=== PATIENT | female | born 1995 ===

== ENCOUNTER 2017-06-22 18:24 | Emergency (ER) | payer SELFPAY ==
[2017-06-22 19:58] VITALS: BP 124/88; PULSE 88; RESP 16; O2SAT 98
--- NOTE | 2017-06-22 20:35 | C.PDOC ---
History Of Present Illness 22 year old female presents to the ER with a complaint of palpitations and feeling shaky after taking 1 tablet of a "quickfit" pill. Denies abdominal pain , SOB, or vomiting. Patient currently feels better, reports she is asymptomatic at this time. Time Seen by Provider: 06/22/17 19:46 Chief Complaint (Nursing): Palpitations History Per: Patient History/Exam Limitations: no limitations Onset/Duration Of Symptoms: Hrs Current Symptoms Are (Timing): Gone Recent travel outside of the [place]: No Past Medical History Reviewed: Historical Data, Nursing Documentation, Vital Signs Vital Signs: Last Vital Signs Temp Pulse 88 06/22/17 19:57 Resp 16 06/22/17 19:57 BP 124/88 06/22/17 19:57 Pulse Ox 98 06/22/17 21:13 Family History: States: Unknown Family Hx - Social History Hx Alcohol Use: No Hx Substance Use: No - Immunization History Hx Tetanus Toxoid Vaccination: No Hx Influenza Vaccination: No Hx Pneumococcal Vaccination: No Review Of Systems Cardiovascular: Positive for: Palpitations. Negative for: Chest Pain Respiratory: Negative for: Shortness of Breath Gastrointestinal: Negative for: Vomiting, Abdominal Pain, Diarrhea Physical Exam - Physical Exam Appears: Non-toxic, No Acute Distress Skin: Normal Color, Warm, Dry Head: Atraumatic, Normacephalic Eye(s): bilateral: Normal Inspection, PERRL, EOMI Oral Mucosa: Moist Chest: Symmetrical, No Tenderness Cardiovascular: Rhythm Regular Respiratory: Normal Breath Sounds, No Rales, No Rhonchi, No Wheezing Gastrointestinal/Abdominal: Soft, No Tenderness Neurological/Psych: Oriented x3, Normal Speech ED Course And Treatment ECG: Interpreted By Me, Viewed By Me ECG Rhythm: Sinus Rhythm ECG Interpretation: Normal Interpretation Of ECG: No acute ST/T wave changes Rate From EC O2 Sat by Pulse Oximetry: 98 (Room air) Pulse Ox Interpretation: Normal Progress Note: Pt in no resp distress,and asymptomatic at this point. Poison control center contacted and advised symptomatic care only. Pt will be d/c with PMD follow up and advised to d/c the diet pills and educated in healthy eating habits and exercise. Return precautions discussed Reassessment Condition: Improved Disposition - Disposition Referrals: [facility] [Outside] Disposition: HOME/ ROUTINE Disposition Time: 20:33 Condition: STABLE Additional Instructions: STOP the PILLS ( NO NIEVES) Please follow up in clinic Increase fluids Return to ER if difficulty breathing, chest pain,vomiting or worse Forms: General Discharge Instructions - Clinical Impression Clinical Impression: Use of herbal medication, Anxiety, mild - PA / RN QUALITY / Resident Statement MD/DO has reviewed & agrees with the documentation as recorded. - Scribe Statement The provider has reviewed the documentation as recorded by the Scribe Pelon Enrique All medical record entries made by the Nainibvicky were at my direction and personally dictated by me. I have reviewed the chart and agree that the record accurately reflects my personal performance of the history, physical exam, medical decision making, and the department course for this patient. I have also personally directed, reviewed, and agree with the discharge instructions and disposition.
--- NOTE | 2017-06-23 13:53 | CARD ---
APPROVED REPORT EKG Measurement Heart [id number] <Conclusion> Normal sinus rhythm with sinus arrhythmia Normal ECG
== END 2017-06-22 20:42 | disposition home or self-care (01) ==
LOC: C.ER 18:24
DX: F41.9 Anxiety disorder, unspecified (principal)

== ENCOUNTER 2017-07-01 14:51 | Emergency (ER) | payer SELFPAY ==
[2017-07-01 15:30] VITALS: BMI 25.0
[2017-07-01 15:37] VITALS: BP 115/83; PULSE 78; RESP 16; TEMP 98.3; O2SAT 100
[2017-07-01] MEDS ORDERED: Sodium Chloride 0.9% 1,000 ML IV ONE (16:43)
== END 2017-07-01 15:32 | disposition left against medical advice (07) ==
LOC: C.ER 14:51
DX: Z02.89 Encounter for other administrative examinations (principal); R42 Dizziness and giddiness

== ENCOUNTER 2017-08-30 17:21 | Emergency (ER) | payer SELFPAY ==
[2017-08-30 18:42] VITALS: BMI 25.7
[2017-08-30 18:46] VITALS: TEMP 98.3
--- NOTE | 2017-08-30 19:35 | C.PDOC ---
History Of Present Illness 22 y/o female presents to ED with complaints of rash to face intermittently for 1 month. Patient states she came from [place] 1 month ago and started developing rash when she goes outside in the cold and it resolves on its own when she goes back inside. Also notes nausea and lightheaded intermittently. Denies any exacerbating signs or symptoms. Patient reports headache, dizziness, visual changes, abdominal pain, neck pain, vaginal bleeding /discharge, vomiting, change in sensation or any other complaints at this time. Patient currently on menses. States she has not been evaluated for these symptoms previously. 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 History/Exam Limitations: no limitations Onset/Duration Of Symptoms: Days Current Symptoms Are (Timing): Still Present Past Medical History Reviewed: Historical Data, Nursing Documentation, Vital Signs Vital Signs: Last Vital Signs Temp 98.3 F 08/30/17 18:43 Pulse 74 08/30/17 21:49 Resp 20 08/30/17 21:49 BP 110/64 08/30/17 21:49 Pulse Ox 98 08/30/17 21:49 - Medical History PMH: No Chronic Diseases Surgical History: No Surg Hx Family History: States: No Known Family Hx - Social History Hx Alcohol Use: No Hx Substance Use: No - Immunization History Hx Tetanus Toxoid Vaccination: No Hx Influenza Vaccination: No Hx Pneumococcal Vaccination: No Review Of Systems Constitutional: Negative for: Fever, Chills Cardiovascular: Negative for: Chest Pain Respiratory: Negative for: Cough, Shortness of Breath Gastrointestinal: Positive for: Nausea. Negative for: Vomiting, Abdominal Pain Skin: Positive for: Rash Physical Exam - Physical Exam Appears: Non-toxic, No Acute Distress Skin: Warm, Dry, Rash ((+) mild skin colored inflammation and scaling periorbitally) Head: Atraumatic, Normacephalic Eye(s): bilateral: Normal Inspection, PERRL, EOMI Ear(s): Bilateral: Normal Nose: Normal Oral Mucosa: Moist Throat: Normal, No Erythema, No Exudate Neck: Normal ROM, Supple Chest: Symmetrical Cardiovascular: Rhythm Regular Respiratory: Normal Breath Sounds, No Accessory Muscle Use, No Rales, No Rhonchi , No Wheezing Gastrointestinal/Abdominal: Soft, No Tenderness, No Guarding, No Rebound Extremity: Normal ROM Neurological/Psych: Oriented x3, Normal Speech, Normal Cognition ED Course And Treatment - Laboratory Results Result Diagrams: 08/30/17 20:05 08/30/17 20:05 O2 Sat by Pulse Oximetry: 100 (RA) Pulse Ox Interpretation: Normal Progress Note: Discussed with pt limitations of work up and instructed to follow up with PM Din 1-2 days for further evaluation. Instructed to return to ER if symptoms persist or worsen. transplant nurse used to ensure understanding. Disposition - Disposition Referrals: [facility] [Outside] Disposition: HOME/ ROUTINE Disposition Time: 21:04 Condition: STABLE Additional Instructions: Keyona un seguimiento con el pediatra en 1-2 lee. Regrese a la freddie de emergencias si los sntomas persisten o empeoran. Prescriptions: Glycerin/Lanolin/Mineral Oil [Eucerin Intensive Repair Crm] 1 appl TP BID 5 Days cream..g. Instructions: Dermatitis Forms: [employer] (Polish) Print Language: INDIAN - Clinical Impression Clinical Impression: Facial rash, Nausea - PA / VISITOR SERVICES ASSOCIATE / Resident Statement MD/DO has reviewed & agrees with the documentation as recorded. - Scribe Statement The provider has reviewed the documentation as recorded by the Nainibvicky Staples All medical record entries made by the Scribe were at my direction and personally dictated by me. I have reviewed the chart and agree that the record accurately reflects my personal performance of the history, physical exam, medical decision making, and the department course for this patient. I have also personally directed, reviewed, and agree with the discharge instructions and disposition.
[2017-08-30 20:15] LABS: BASO % 0.5 % (0.0-2.0); EOS # 0.1 K/uL (0.0-0.7); EOS % 2.1 % (0.0-4.0); HEMOGLOBIN 13.8 g/dL (11.0-16.0); LYMPH # 1.6 K/uL (1.0-4.3); LYMPH % 34.9 % (20.0-40.0); MEAN CELL VOLUME 88.4 fL (81.0-99.0); MEAN CORPUSCULAR HEMOGLOBIN 29.2 pg (27.0-31.0); MEAN PLATELET VOLUME 8.6 fL (7.2-11.7); MONO # 0.7 K/uL (0.0-0.8); MONO % 15.6 % (0.0-10.0); NEUT # 2.2 K/uL (1.8-7.0); NEUT % 46.9 % (50.0-75.0); NRBC % 0.1 % (0.0-2.0); RBC 4.72 Mil/uL (3.80-5.20); RED CELL DISTRIBUTION WIDTH 14.8 % (11.5-14.5); WHITE BLOOD COUNT 4.6 K/uL (4.8-10.8)
[2017-08-30 20:21] LABS: SQUAMOUS EPITHIAL 6 /hpf (0-5); URINE BACTERIA RARE (<OCC); URINE BILIRUBIN NEGATIVE (NEGATIVE); URINE BLOOD NEGATIVE (NEGATIVE); URINE CLARITY Hazy (Clear); URINE COLOR Yellow (YELLOW); URINE GLUCOSE (UA) NORMAL (Normal); URINE LEUKOCYTE ESTERASE TRACE Leu/uL (Negative); URINE PROTEIN NEGATIVE (NEGATIVE); URINE UROBILINOGEN NORMAL mg/dL (0.2-1.0)
[2017-08-30 20:22] LABS: HCG,QUALITATIVE URINE NEGATIVE (NEGATIVE)
[2017-08-30 20:24] LABS: ALB/GLOB RATIO 1.1 (1.0-2.1); ALBUMIN 4.5 g/dL (3.5-5.0); ALT/SGPT 39 U/L (9-52); AST/SGOT 29 U/L (14-36); BLOOD UREA NITROGEN 9 mg/dL (7-17); CALCIUM 9.5 mg/dl (8.6-10.4); GFR AFRICAN-AMERICAN > 60; GFR NON-AFRICAN AMERICAN > 60
[2017-08-30 21:50] VITALS: BP 110/64; PULSE 74; RESP 20
--- NOTE | 2017-08-31 11:59 | CARD ---
APPROVED REPORT EKG Measurement Heart [id number] <Conclusion> Normal sinus rhythm with sinus arrhythmia Normal ECG
[2017-09-04 16:11] VITALS: O2SAT 100
== END 2017-08-30 21:49 | disposition home or self-care (01) ==
LOC: C.ER 17:21
DX: R21 Rash and other nonspecific skin eruption (principal); R11.0 Nausea

== ENCOUNTER 2018-02-10 13:36 | Emergency (ER) | payer OTHER ==
[2018-02-10 13:36] VITALS: BMI 25.6
--- NOTE | 2018-02-10 14:20 | C.PDOC ---
History Of Present Illness 22 year old female presents to the ED complaining of vaginal bleeding for 2 weeks. She also complains of suprapubic tenderness. She denies any n/v/d, fever, chills, or any other symptoms. Time Seen by Provider: 02/10/18 13:47 Chief Complaint (Nursing): Female Genitourinary History Per: Patient History/Exam Limitations: no limitations Onset/Duration Of Symptoms: Days (2 weeks ) Current Symptoms Are (Timing): Still Present Associated Symptoms: denies: Fever, Chills, Nausea, Vomiting, Diarrhea Past Medical History Reviewed: Historical Data, Nursing Documentation, Vital Signs Vital Signs: Last Vital Signs Temp 98.7 F 02/10/18 13:44 Pulse 70 02/10/18 13:44 Resp 20 02/10/18 13:44 BP 114/76 02/10/18 13:44 Pulse Ox 100 02/10/18 13:44 - Medical History Other PMH: Respiratory diseases, bleeding disorder Surgical History: No Surg Hx Family History: States: No Known Family Hx - Social History Hx Alcohol Use: No Hx Substance Use: No - Immunization History Hx Tetanus Toxoid Vaccination: No Hx Influenza Vaccination: No Hx Pneumococcal Vaccination: No Review Of Systems Constitutional: Negative for: Fever, Chills Gastrointestinal: Positive for: Abdominal Pain (suprapubic cramping). Negative for: Nausea, Vomiting, Diarrhea Genitourinary: Positive for: Vaginal Bleeding. Negative for: Dysuria, Hematuria Physical Exam - Physical Exam Appears: Non-toxic Skin: Warm, Dry Head: Normacephalic Eye(s): bilateral: Normal Inspection Nose: Normal Oral Mucosa: Moist Neck: Normal ROM Chest: Symmetrical Cardiovascular: Rhythm Regular Respiratory: Normal Breath Sounds, No Rales, No Rhonchi, No Wheezing Gastrointestinal/Abdominal: Tenderness (Suprapubic tenderness ), No Distention, No Guarding, No Rebound Extremity: Normal ROM Neurological/Psych: Oriented x3, Normal Speech Gait: Steady ED Course And Treatment - Laboratory Results Result Diagrams: 02/10/18 14:37 02/10/18 14:37 Lab Interpretation: Normal Urine POC: Negative O2 Sat by Pulse Oximetry: 100 (RA) Pulse Ox Interpretation: Normal Progress Note: Labs ordered. On re-evaluation abdomen soft non-tender. Advised to follow up with POLLUTION CONTROL CHEMIST Reassessment Condition: Unchanged Medical Decision Making Medical Decision Making: Orders: - Labwork - UA - POC Urine Disposition Counseled Patient/Family Regarding: Studies Performed, Diagnosis, Need For Followup, Rx Given - Disposition Referrals: [facility] [Outside] [facility] [Outside] [facility] [Outside] Disposition: HOME/ ROUTINE Disposition Time: 16:00 Condition: STABLE Additional Instructions: Follow up with clinic or your PRODUCT ANALYST for further evaluation Instructions: Heavy Periods Forms: [employer] (Austrian) Print Language: VIETNAMESE - POA Present On Arrival: None - Clinical Impression Clinical Impression: Vaginal bleeding - PA / COCKTAIL WAITRESS / Resident Statement MD/DO has reviewed & agrees with the documentation as recorded. - Scribe Statement The provider has reviewed the documentation as recorded by the Scribe Disha Melton All medical record entries made by the Nainibvicky were at my direction and personally dictated by me. I have reviewed the chart and agree that the record accurately reflects my personal performance of the history, physical exam, medical decision making, and the department course for this patient. I have also personally directed, reviewed, and agree with the discharge instructions and disposition.
[2018-02-10 14:49] LABS: BASO % 0.5 % (0.0-2.0); EOS # 0.2 K/uL (0.0-0.7); EOS % 2.8 % (0.0-4.0); MEAN CELL VOLUME 88.7 fL (81.0-99.0); MEAN CORPUSCULAR HEMOGLOBIN 29.8 pg (27.0-31.0); MEAN CORPUSCULAR HGB CONC 33.6 g/dL (33.0-37.0); MEAN PLATELET VOLUME 8.9 fL (7.2-11.7); MONO # 0.6 K/uL (0.0-0.8); MONO % 9.5 % (0.0-10.0); NEUT # 3.3 K/uL (1.8-7.0); NEUT % 54.2 % (50.0-75.0); RBC 3.84 Mil/uL (3.80-5.20); RED CELL DISTRIBUTION WIDTH 14.2 % (11.5-14.5); WHITE BLOOD COUNT 6.2 K/uL (4.8-10.8)
[2018-02-10 14:51] LABS: HEMOGLOBIN 11.5 g/dL (11.0-16.0)
[2018-02-10 14:57] LABS: ALB/GLOB RATIO 1.4 (1.0-2.1); ALBUMIN 4.1 g/dL (3.5-5.0); ALT/SGPT 24 U/L (9-52); AST/SGOT 15 U/L (14-36); BLOOD UREA NITROGEN 9 mg/dL (7-17); CALCIUM 9.4 mg/dl (8.6-10.4); GFR NON-AFRICAN AMERICAN > 60
[2018-02-10 14:58] LABS: SQUAMOUS EPITHIAL 2 /hpf (0-5); URINE BACTERIA RARE (<OCC); URINE BILIRUBIN NEGATIVE (NEGATIVE); URINE BLOOD 3+ (NEGATIVE); URINE CLARITY Hazy (Clear); URINE COLOR Yellow (YELLOW); URINE GLUCOSE (UA) NORMAL (Normal); URINE LEUKOCYTE ESTERASE TRACE Leu/uL (Negative); URINE PROTEIN 1+ mg/dL (NEGATIVE)
[2018-02-10 16:04] VITALS: BP 115/75; PULSE 64; RESP 18; TEMP 97.4
[2018-02-10 17:26] VITALS: O2SAT 100
== END 2018-02-10 16:04 | disposition home or self-care (01) ==
LOC: C.ER 13:36
DX: N93.9 Abnormal uterine and vaginal bleeding, unspecified (principal)